=== PATIENT | female | born 1945 | race Caucasian/White ===

== ENCOUNTER → 2018-02-22 12:19 | Outpatient (CLI) | payer MEDICARE, OTHER, SELFPAY | PROVIDERS: Visit Provider Specialist | DX: M85.851 Other specified disorders of bone density and structure, right thigh (principal); E07.9 Disorder of thyroid, unspecified; Z78.0 Asymptomatic menopausal state; Z82.62 Family history of osteoporosis; Z85.43 Personal history of malignant neoplasm of ovary | CPT/HCPCS: 77080 ==

== ENCOUNTER → 2018-03-01 11:42 | Outpatient (CLI) | payer MEDICARE, OTHER, SELFPAY ==
--- NOTE | 2018-03-01 | DI.CT.S_ITS ---
PROCEDURE: CT ABDOMEN PELVIS WO/W CON INDICATIONS: 72 year-old female with diarrhea and epigastric abdominal pain. TECHNIQUE: After the administration of oral water, 5 mm thick sections acquired from the diaphragms to the iliac crests. After the administration of intravenous contrast, 3 mm thick sections acquired from the diaphragms to the symphysis. 3 mm thick coronal and sagittal reformats were acquired. For radiation dose reduction, the following was used: automated exposure control, adjustment of mA and/or kV according to patient size. COMPARISON: None. FINDINGS: Image quality: Excellent. ABDOMEN: Lung bases: Lung bases are clear. Heart size is normal. Solid organs: Liver is normal in size. 3.1 cm anterior left hepatic lobe septated cyst is incidentally noted, as well as posterior right hepatic lobe subcapsular hemangioma that measure 1.7 x 2.2 cm, demonstrating characteristic peripheral contrast puddling. Gallbladder wall thickness is normal. Biliary system is non-dilated. Pancreas enhances normally, without suspicious mass lesions. Main pancreatic duct is normal in caliber throughout, with pancreas divisum present. Spleen is normal in size and enhancement. No adrenal nodules. Both kidneys demonstrates symmetric enhancement, without hydronephrosis. No nephrolithiasis. 6.5 cm superior left renal cortical simple cyst is present. Bowel and peritoneum: Stomach, small and large bowel loops are normal in caliber and wall thickness. The appendix appears normal. There is mild sigmoid colon diverticulosis. No free fluid or air. Nodes and vessels: No retroperitoneal or mesenteric adenopathy by size criteria. Aorta and inferior vena are normal in caliber, with aortoiliac atherosclerosis. Miscellaneous: No ventral hernias. PELVIS: Genitourinary: Bladder wall thickness is normal. Uterus and ovaries are surgically absent. Miscellaneous: No inguinal hernias or adenopathy. Bones: No suspicious bony lesions. No vertebral body compression fractures. There is grade 1 L4-L5 spondylolisthesis from facet joint degeneration. IMPRESSION: 1. No acute pancreatic or biliary pathology to explain epigastric abdominal pain. Note is made of pancreas divisum, an anatomic variant. 2. Incidental 3.1 cm anterior left hepatic lobe septated cyst, as well as 1.7 x 2.2 cm posterior right hepatic lobe subcapsular hemangioma. 3. 6.5 cm superior left renal cortical exophytic simple cyst. 4. Mild sigmoid colon diverticulosis. Dictated by: Delfino Souza M.D. on 03/01/2018 at 13:59 Approved by: Delfino Souza M.D. on 03/01/2018 at 14:14
== END ==
PROVIDERS: Visit Provider Family Medicine
DX: R19.7 Diarrhea, unspecified (principal); R10.13 Epigastric pain; K76.89 Other specified diseases of liver; N28.1 Cyst of kidney, acquired
CPT/HCPCS: 74178; Q9967

== ENCOUNTER → 2018-04-16 10:19 | Outpatient (CLI) | payer MEDICARE, OTHER, SELFPAY ==
[2018-04-20 16:17] LABS: Immunoglobulin A 130 mg/dL (81-463)
== END ==
PROVIDERS: Internal Medicine Gastroenterology; PCP Family Medicine; Visit Provider Family Medicine
DX: R89.7 Abnormal histological findings in specimens from other organs, systems and tissues (principal)
CPT/HCPCS: 36415; 82784; 83516

== ENCOUNTER → 2019-08-17 13:20 | Outpatient (CLI) | payer MEDICARE, OTHER, SELFPAY ==
--- NOTE | 2019-08-17 | DI.ECHO.S_ITS ---
[facility]---------+ [facility] +---------+ : : [address] : : : : [id number] : : : : Phone: [phone]+ Echocardiogram Report + + :Name: BRANDON GARCIA Study Date: 08/17/2019 Height: 65 in : :[facility] Weight: 170 lb : : Gender: Female BSA: 1.8 m2 : :: 1945 Age: 74 yrs BP: 136/78 mmHg: :Reason For Study: Cardiomyopathy : : Performed By: [facility] Staff : :Referring: STEVAN TAYLOR D : + + Interpretation Summary The left ventricle is normal in size. Left ventricular ejection fraction is estimated to be 50 +/- 5%. Septal motion is consistent with conduction abnormality. The right ventricle is normal in size and function. There is mild to moderate mitral regurgitation. Procedure: A two-dimensional transthoracic echocardiogram with color flow and Doppler was performed. The study quality was technically adequate. There is no prior echocardiogram noted for this patient. The patient was in normal sinus rhythm during the exam. The patient had a bundle branch block rhythm during the exam. Left Ventricle: The left ventricle is normal in size. There is normal left ventricular wall thickness. There is no thrombus. Left ventricular systolic function is normal. Left ventricular ejection fraction is estimated to be 50 +/- 5%. Septal motion is consistent with conduction abnormality. Diastolic parameters suggest a relaxation abnormality of the left ventricle, consistent with probable normal filling pressures. Right Ventricle: The right ventricle is normal in size and function. Atria: The left atrial size is normal. Right atrial size is normal. The interatrial septum is intact with no evidence for an atrial septal defect. Mitral Valve: There is mild mitral annular calcification. The mitral valve leaflets are slightly calcified. There is mild to moderate mitral regurgitation. Aortic Valve: The aortic valve is trileaflet. The aortic valve opens well. There is no aortic valve stenosis. No aortic regurgitation is present. Tricuspid Valve: The tricuspid valve is normal. There is trace tricuspid regurgitation. Pulmonary artery pressures cannot be estimated because of the lack of a measurable TR jet velocity. Pulmonic Valve: The pulmonic valve is not well visualized. There is trace pulmonic regurgitation. Great Vessels: The aortic root is normal size. The dimensions of the ascending aorta are normal. The pulmonary artery is normal size. The IVC is dilated (diameter is greater than 2.1 cm) yet it collapses greater than 50% with a sniff. This suggests a right atrial pressure of 8 mm Hg. Pericardium/ Pleura There is no pericardial effusion. There is no pleural effusion. MMode/2D Measurements & Calculations LVIDd: 4.7 cm LVOT diam: 2.1 cm LVIDs: 3.3 cm Ao root diam: 3.5 cm FS: 29.0 % IVSd: 1.1 cm LVPWd: 1.1 cm LV kent. diameter/BSA (cm/m^2): 2.5 LV sys. diameter/BSA (cm/m^2): 1.8 LA A2 area: 20.6 cm2 RA long axis: 4.3 cm LA A4 area: 16.8 cm2 RA area: 13.7 cm2 LA length (vol): 5.1 cm RA vol: 37.7 ml LA vol: 58.1 ml RA : 20.4 ml/m2 LA vol index: 31.5 ml/m2 TAPSE: 2.5 cm Doppler Measurements & Calculations Ao V2 max: 115.4 cm/sec LVOT Max Eulalio: 85.3 cm/sec Ao V2 mean: 77.0 cm/sec LV V1 max P.9 mmHg Ao max P.3 mmHg LV V1 VTI: 20.7 cm Ao mean P.8 mmHg GLORIA(I,D): 2.8 cm2 Ao V2 VTI: 24.8 cm GLORIA(V,D): 2.5 cm2 sev ratio: 0.84 GLORIA indexed to BSA (cm^2/m^2): 1.5 MV E max eulalio: 67.9 cm/sec SV(LVOT): 69.2 ml MV A max eulalio: 83.7 cm/sec MV E/A: 0.81 Med Peak E' Eulalio: 6.8 cm/sec E/E' med: 10.0 Lat Peak E' Eulalio: 8.9 cm/sec E/E' lat: 7.7 E/e' average: 8.8 MV dec time: 0.15 sec Reading Physician:02:36 PM
== END ==
PROVIDERS: PCP Family Medicine; Visit Provider Family Medicine
DX: I34.0 Nonrheumatic mitral (valve) insufficiency (principal); I42.9 Cardiomyopathy, unspecified; M85.851 Other specified disorders of bone density and structure, right thigh; Z78.0 Asymptomatic menopausal state; E07.9 Disorder of thyroid, unspecified; K90.0 Celiac disease; Z90.722 Acquired absence of ovaries, bilateral; Z82.62 Family history of osteoporosis; Z85.43 Personal history of malignant neoplasm of ovary
CPT/HCPCS: 77080; 93306

== ENCOUNTER → 2019-11-17 08:44 | Outpatient (CLI) | payer MEDICARE, OTHER, SELFPAY ==
[2019-11-17 10:11] LABS: Add Manual Diff / Slide Review NO; Basophils Absolute Auto 0 /uL (0-100); Basophils Percent Auto 1.2 % (0-2); Eosinophils Absolute Auto 100 /uL (0-450); Eosinophils Percent Auto 3.5 % (2-4); Hemoglobin 13.2 g/dL (12.0-16.0); Lymphocytes Absolute Auto 700 /uL (1100-4500); Lymphocytes Percent Auto 19.6 % (25-40); Mean Corpuscular HGB Conc 33.9 % (30-36); Mean Corpuscular Hemoglobin 31.1 PG (26-34); Mean Corpuscular Volume 91.7 fL (80-100); Monocytes Absolute Auto 400 /uL (0-900); Monocytes Percent Auto 9.9 % (3-14); Neutrophils Absolute Auto 2500 /uL (1500-7000); Neutrophils Percent Auto 65.8 % (50-75); Platelet Count 256 X10^3/uL (150-400); Red Blood Cell Count 4.25 X10^6/uL (4.0-5.2); Red Cell Distribution Width 14.1 % (11.6-14.8); White Blood Cell Count 3.7 X10^3/uL (4.5-11.0)
[2019-11-17 10:31] LABS: Erythrocyte Sedimentation Rate 5 MM/HR (0-20)
[2019-11-17 10:39] LABS: Alanine Aminotransferase 20 IU/L (<35); Albumin 4.4 g/dL (3.5-5.0); Albumin Globulin Ratio 1.4 (1.0-2.8); Alkaline Phosphatase 63 U/L (38-126); Aspartate Aminotransferase 30 IU/L (14-36); BUN Creatinine Ratio 22.9 (6-22); Bilirubin Total 0.6 mg/dL (0.2-1.3); Blood Urea Nitrogen 19 mg/dL (7-17); Calcium 9.4 mg/dL (8.4-10.2); Carbon Dioxide 29 mmol/L (22-32); Chloride 103 mmol/L (98-107); Cholesterol 212 mg/dL (140-199); Estimated Glomerular Filt Rate > 60.0 mL/min (>60); Globulin 3.2 g/dL (1.7-4.1); Glucose 96 mg/dL (80-110); HDL Cholesterol 52 mg/dL (40-60); HEMOLYSIS < 15 (0-50); LDL Cholesterol Calculated 149 mg/dL (<100); Sodium 140 mmol/L (137-145); Total Protein 7.6 g/dL (6.3-8.2); Triglycerides 54 mg/dL (35-150)
[2019-11-17 10:43] LABS: C-Reactive Protein Quant < 0.5 mg/dL (<1.0)
[2019-11-17 11:05] LABS: Thyroid Stimulating Hormone 4.88 uIU/mL (0.47-4.68)
[2019-11-17 11:34] LABS: Hep C Virus Ab w/Reflex Quant NEGATIVE s/c (NEGATIVE)
[2019-11-17 11:38] LABS: Folate 16.3 ng/mL (2.76-20.0); Vitamin B12 816 pg/mL (239-931)
[2019-11-19 00:44] LABS: Methylmalonic Acid,Serum 110 nmol/L (0-378)
== END ==
PROVIDERS: PCP Family Medicine; Referring Provider Family Medicine; Visit Provider Family Medicine
DX: E03.9 Hypothyroidism, unspecified (principal); D72.819 Decreased white blood cell count, unspecified; E78.2 Mixed hyperlipidemia
CPT/HCPCS: 36415; 80053; 80061; 82607; 82746; 83090; 83921; 84443; 85025; 85651; 86140; 86803

== ENCOUNTER → 2021-04-02 10:05 | Outpatient (CLI) | payer MEDICARE, OTHER, SELFPAY ==
[2021-04-02 18:48] LABS: Add Manual Diff / Slide Review NO; Basophils Absolute Auto 0 /uL (0-100); Basophils Percent Auto 0.7 % (0-2); Eosinophils Absolute Auto 200 /uL (0-450); Hemoglobin 12.6 g/dL (12.0-16.0); Lymphocytes Absolute Auto 400 /uL (1100-4500); Lymphocytes Percent Auto 12.2 % (25-40); Mean Corpuscular Hemoglobin 30.6 PG (26-34); Mean Corpuscular Volume 90.1 fL (80-100); Monocytes Absolute Auto 400 /uL (0-900); Monocytes Percent Auto 13.6 % (3-14); Neutrophils Absolute Auto 2100 /uL (1500-7000); Neutrophils Percent Auto 68.5 % (50-75); Platelet Count 248 X10^3/uL (150-400); Red Blood Cell Count 4.11 X10^6/uL (4.0-5.2); Red Cell Distribution Width 14.7 % (11.6-14.8); White Blood Cell Count 3.1 X10^3/uL (4.5-11.0)
[2021-04-02 18:59] LABS: Alanine Aminotransferase 19 IU/L (<35); Albumin 3.9 g/dL (3.5-5.0); Albumin Globulin Ratio 1.5 (1.0-2.8); Alkaline Phosphatase 69 U/L (38-126); Aspartate Aminotransferase 31 IU/L (14-36); BUN Creatinine Ratio 20.3 (6-22); Bilirubin Total 0.7 mg/dL (0.2-1.3); Blood Urea Nitrogen 15 mg/dL (7-17); Calcium 9.4 mg/dL (8.4-10.2); Carbon Dioxide 28 mmol/L (22-32); Chloride 105 mmol/L (98-107); Cholesterol 208 mg/dL (140-199); Estimated Glomerular Filt Rate > 60.0 mL/min (>60); Globulin 2.6 g/dL (1.7-4.1); Glucose 91 mg/dL (80-110); HDL Cholesterol 66 mg/dL (40-60); HEMOLYSIS < 15 (0-50); LDL Cholesterol Calculated 129 mg/dL (<100); Potassium 4.6 mmol/L (3.4-5.1); Sodium 139 mmol/L (137-145); Total Protein 6.5 g/dL (6.3-8.2); Triglycerides 67 mg/dL (35-150)
[2021-04-02 19:22] LABS: Vitamin D 25 Hydroxy (D3) 57.9 ng/mL (30.0-100.0)
[2021-04-02 19:32] LABS: TSH w/ Reflex to FT4 0.75 uIU/mL (0.47-4.68)
== END ==
PROVIDERS: PCP Family Medicine; Visit Provider Family Medicine
DX: E03.9 Hypothyroidism, unspecified (principal); M85.80 Other specified disorders of bone density and structure, unspecified site; Z13.220 Encounter for screening for lipoid disorders; Z78.0 Asymptomatic menopausal state
CPT/HCPCS: 80053; 80061; 82306; 84443; 85025

== ENCOUNTER → 2021-04-23 11:19 | Outpatient (CLI) | payer MEDICARE, OTHER, SELFPAY ==
[2021-04-23 18:53] LABS: Add Manual Diff / Slide Review NO; Basophils Absolute Auto 0 /uL (0-100); Basophils Percent Auto 0.3 % (0-2); Eosinophils Absolute Auto 100 /uL (0-450); Eosinophils Percent Auto 3.9 % (2-4); Hematocrit 39.6 % (36-46); Hemoglobin 13.1 g/dL (12.0-16.0); Lymphocytes Absolute Auto 500 /uL (1100-4500); Lymphocytes Percent Auto 12.1 % (25-40); Mean Corpuscular Hemoglobin 30.1 PG (26-34); Mean Corpuscular Volume 91.1 fL (80-100); Monocytes Absolute Auto 400 /uL (0-900); Monocytes Percent Auto 11.3 % (3-14); Neutrophils Absolute Auto 2800 /uL (1500-7000); Neutrophils Percent Auto 72.4 % (50-75); Platelet Count 248 X10^3/uL (150-400); Red Blood Cell Count 4.35 X10^6/uL (4.0-5.2); Red Cell Distribution Width 14.9 % (11.6-14.8); White Blood Cell Count 3.8 X10^3/uL (4.5-11.0)
[2021-04-23 19:09] LABS: Alanine Aminotransferase 23 IU/L (<35); Albumin 4.2 g/dL (3.5-5.0); Albumin Globulin Ratio 1.5 (1.0-2.8); Alkaline Phosphatase 62 U/L (38-126); Amylase 63 U/L (30-110); Aspartate Aminotransferase 32 IU/L (14-36); BUN Creatinine Ratio 19.8 (6-22); Bilirubin Total 0.6 mg/dL (0.2-1.3); Blood Urea Nitrogen 17 mg/dL (7-17); Calcium 9.5 mg/dL (8.4-10.2); Carbon Dioxide 30 mmol/L (22-32); Chloride 102 mmol/L (98-107); Estimated Glomerular Filt Rate > 60.0 mL/min (>60); Globulin 2.8 g/dL (1.7-4.1); Glucose 91 mg/dL (80-110); HEMOLYSIS < 15 (0-50); Lipase 83 U/L (23-300); Potassium 4.5 mmol/L (3.4-5.1); Sodium 138 mmol/L (137-145)
[2021-04-26 14:01] LABS: Fecal Immunochemical Test Negative (Negative)
== END ==
PROVIDERS: PCP Physician Assistant; Visit Provider Physician Assistant
DX: I44.7 Left bundle-branch block, unspecified (principal); Q45.3 Other congenital malformations of pancreas and pancreatic duct; R10.12 Left upper quadrant pain; R10.32 Left lower quadrant pain
CPT/HCPCS: 80053; 82150; 82274; 83690; 85025

== ENCOUNTER → 2021-06-11 10:47 | Outpatient (CLI) | payer MEDICARE, OTHER, SELFPAY ==
--- NOTE | 2021-06-11 10:48 | DI.MRI.S_ITS ---
PROCEDURE: MR LUMBAR SPINE WO CON INDICATIONS: pain in both lower legs TECHNIQUE: Noncontrast sagittal T1 spin echo and T2 fast echo, sagittal STIR, axial T1 and T2 fast spin echo through the lumbar spine. In cases with scoliosis, additional coronal T2 fast spin echo may be performed. COMPARISON: [facility], CT, CT ABDOMEN PELVIS WO/W CON, 03/01/2018, 12:44. FINDINGS: Image quality: This examination is limited by involuntary motion artifact. Alignment and Curvature: There is mild grade 1 anterolisthesis at the L4-L5 level. There is minimal dextroconvex scoliotic curvature. Bone Marrow: Marrow is of normal overall signal. No acute vertebral body compression fractures. Spinal Cord: Conus medullaris terminates at the L1 level. Visualized cord demonstrates normal signal and size. Paraspinous Soft Tissues: No paravertebral masses. A 5.5 cm simple cyst is seen along the medial aspect of the left kidney. T11-T12: Moderate loss of disc height and disc signal can be seen. Reactive marrow endplate changes are seen, which are hyperintense on T1-weighted and T2-weighted imaging and most consistent with fatty metaplasia (Modic type II changes). Mild generalized disc bulge is seen. No significant neural foraminal or central canal narrowing can be seen. T12-L1: Mild loss of disc height is seen. Loss of disc signal is seen. No significant neural foraminal or central canal narrowing can be seen. L1-L2: The disc height is well-preserved. Loss of disc signal is seen at this level. No significant neural foraminal or central canal narrowing can be seen. L2-L3: The disc height is well-preserved. Loss of disc signal is seen at this level. Minimal to mild disc bulge is seen. There is mild left-sided and no right-sided neural foraminal narrowing seen. No significant central canal narrowing is seen. L3-L4: The disc height is well-preserved. Loss of disc signal is seen at this level. Moderate generalized disc bulge is seen. There is a mild central disc extrusion, with slight inferior migration of the disc material, as on series 2, image 5. At least moderate facet hypertrophy is seen. Associated hypertrophy of the ligamentum flavum can be seen. Moderate bilateral neural foraminal narrowing can be seen, left worse than right. Moderate central canal narrowing is seen. L4-L5: At least moderate loss of disc height and disc signal can be seen. Reactive marrow endplate changes are seen, which are hyperintense on T1-weighted and T2-weighted imaging and most consistent with fatty metaplasia (Modic type II changes). Moderate disc bulge is seen, with central disc uncovering. Prominent facet hypertrophy is seen at this level. At least moderate bilateral neural foraminal narrowing can be seen, right worse than left. Moderate central canal narrowing is seen. L5-S1: The disc height is well-preserved. Loss of disc signal is seen at this level. Mild generalized disc bulge is seen. Prominent facet hypertrophy is seen. Fluid is seen within the facet joints themselves. No significant neural foraminal narrowing can be seen. Macroadenoma center IMPRESSION: Multiple levels of lumbar spine degenerative change are seen, which are overall worst the L4-L5 level. Mild central disc extrusion seen at L3-L4. Minimal dextroconvex thoracolumbar scoliotic curvature can be seen. Incidental note is made of: 5.5 cm simple appearing left renal cyst Dictated by: Jorge Tinsley M.D. on 06/11/2021 at 12:03 Approved by: Jorge Tinsley M.D. on 06/11/2021 at 12:09
== END ==
PROVIDERS: PCP Physician Assistant; Referring Provider Physician Assistant; Visit Provider Physician Assistant
DX: M47.26 Other spondylosis with radiculopathy, lumbar region (principal); M47.27 Other spondylosis with radiculopathy, lumbosacral region; M51.16 Intervertebral disc disorders with radiculopathy, lumbar region; M41.85 Other forms of scoliosis, thoracolumbar region; N28.1 Cyst of kidney, acquired
CPT/HCPCS: 72148

== ENCOUNTER → 2021-10-28 14:35 | Outpatient (CLI) | payer MEDICARE, OTHER, SELFPAY ==
--- NOTE | 2021-10-28 | DI.RAD.S_ITS ---
PROCEDURE: XR DEXA AXIAL SKELETON INDICATIONS: ROUTINE SCREENING COMPARISON: None. FINDINGS: This blank DEXA report has been sent in error by the PACS system. The correct and complete report will be forthcoming in 1-2 days. Thank you for your patience and understanding. Dictated by: Chen Angeles MD, PhD on 10/28/2021 at 15:45 Approved by: Chen Angeles MD, PhD on 10/28/2021 at 15:45
== END ==
PROVIDERS: PCP Family Medicine; Referring Provider Internal Medicine Hematology & Oncology; Visit Provider Internal Medicine Hematology & Oncology
DX: M85.851 Other specified disorders of bone density and structure, right thigh (principal); Z78.0 Asymptomatic menopausal state; K90.0 Celiac disease; E07.9 Disorder of thyroid, unspecified; Z90.722 Acquired absence of ovaries, bilateral; Z85.3 Personal history of malignant neoplasm of breast; Z82.62 Family history of osteoporosis; Z85.43 Personal history of malignant neoplasm of ovary
CPT/HCPCS: 77080

== ENCOUNTER → 2022-09-18 11:55 | Outpatient (CLI) | payer MEDICARE, OTHER, SELFPAY ==
--- NOTE | 2022-09-18 11:57 | DI.ECHO.S_ITS ---
[facility]---------+ [facility] +---------+ : : [address] : : : : [id number] : : : : Phone: [phone]+ Echocardiogram Report + + :Name: BRANDON GARCIA Study Date: 09/18/2022 Height: 63 in : :[facility] ReadingLocation: Weight: 178 lb : : Gender: Female BSA: 1.8 m2 : :: 1945 Age: 77 yrs BP: 128/87 mmHg: :Reason For Study: HISTORY OF CARDIOMYOPATHY : :Ordering Physician: UTE, : :DOMINGA William Performed By: Hyun Duran : :Referring: LILLY MORALEZ MD : + + Interpretation Summary The ejection fraction is estimated to be 40-45%. Great I diastolic dysfunction. The right ventricle is normal in size and function. There is mild mitral regurgitation. Pulmonary artery pressures cannot be estimated because of the lack of a measurable TR jet velocity. Procedure: A two-dimensional transthoracic echocardiogram with color flow and Doppler was performed. The study quality was technically adequate. There is no prior echocardiogram noted for this patient. The patient was in sinus rhythm with heart rates between 65-78 bpm during the exam. Left Ventricle: The left ventricle is normal in size and wall thickness. The ejection fraction is estimated to be 40-45%. There is a mild dyssynchronous contraction pattern, consistent with a conduction abnormality. Diastolic parameters suggest a relaxation abnormality of the left ventricle, consistent with probable normal filling pressures. Right Ventricle: The right ventricle is normal in size and function. Atria: The left atrium is borderline dilated. The right atrium is normal in size. There is no Doppler evidence for an interatrial shunt. Mitral Valve: The mitral valve is normal. There is mild mitral regurgitation. Aortic Valve: The aortic valve opens well. There is no aortic valve stenosis. No aortic regurgitation is present. Tricuspid Valve: The tricuspid valve is normal in structure and function. There is trace tricuspid regurgitation. Pulmonary artery pressures cannot be estimated because of the lack of a measurable TR jet velocity. Pulmonic Valve: The pulmonic valve is not well seen, but is grossly normal. There is mild pulmonic regurgitation. Great Vessels: The aortic root is normal size. The dimensions of the ascending aorta are normal. The IVC is of normal diameter and collapses greater than 50% with a sniff. This suggests a low right atrial pressure of 3 mm Hg. Pericardium/ Pleura There is no pericardial effusion. There is no pleural effusion. MMode/2D Measurements & Calculations LVIDd: 4.7 cm LVOT diam: 2.1 cm LVIDs: 3.6 cm Ao root diam: 3.5 cm FS: 25.1 % asc Aorta Diam: 3.5 cm IVSd: 0.83 cm Ao Arch Diam (Prox Trans): 2.7 cm LVPWd: 1.0 cm LV kent. diameter/BSA (cm/m^2): 2.6 LV sys. diameter/BSA (cm/m^2): 1.9 LA A2 area: 21.5 cm2 RA long axis: 5.4 cm LA A4 area: 17.5 cm2 RA area: 16.1 cm2 LA length (vol): 5.2 cm RA vol: 40.6 ml LA vol: 61.6 ml RA : 22.1 ml/m2 LA vol index: 33.5 ml/m2 IVC diam: 1.3 cm RVD1 (basal): 3.1 cm RVD2 (mid): 2.8 cm TAPSE: 1.9 cm Doppler Measurements & Calculations Ao V2 max: 132.1 cm/sec LVOT Max Eulalio: 83.7 cm/sec Ao V2 mean: 95.6 cm/sec LV V1 max P.8 mmHg Ao max P.0 mmHg LV V1 VTI: 16.8 cm Ao mean P.0 mmHg GLORIA(I,D): 2.3 cm2 Ao V2 VTI: 26.6 cm GLORIA(V,D): 2.3 cm2 sev ratio: 0.63 GLORIA indexed to BSA (cm^2/m^2): 1.2 MV E max eulalio: 64.7 cm/sec PA V2 max: 80.4 cm/sec MV A max eulalio: 102.8 cm/sec PA V2 mean: 55.6 cm/sec MV E/A: 0.63 PA mean P.4 mmHg Med Peak E' Eulalio: 6.5 cm/sec PA pr(Accel): 49.9 mmHg E/E' med: 10.0 Lat Peak E' Eulalio: 6.5 cm/sec E/E' lat: 9.9 E/e' average: 10.0 MV dec time: 0.20 sec SVLVOT): 60.6 ml Reading Physician:03:58 PM
== END ==
PROVIDERS: PCP Family Medicine; Referring Provider Internal Medicine Cardiovascular Disease; Visit Provider Internal Medicine Cardiovascular Disease
DX: I34.0 Nonrheumatic mitral (valve) insufficiency (principal); I37.1 Nonrheumatic pulmonary valve insufficiency; Z86.79 Personal history of other diseases of the circulatory system
CPT/HCPCS: 93306

== ENCOUNTER → 2023-06-10 12:20 | Outpatient (CLI) | payer MEDICARE, OTHER, SELFPAY ==
--- NOTE | 2023-06-10 | DI.MRI.S_ITS ---
PROCEDURE: MR LUMBAR SPINE WO CON INDICATIONS: Radiculopathy, lumbar region TECHNIQUE: Noncontrast sagittal T1 spin echo and T2 fast echo, coronal T2, sagittal STIR, and T2 fast spin echo through the lumbar spine. COMPARISON: [facility] [place], CR, XR LUMBAR SPINE WITH OBLIQUES PLUS FLEXION EXTENSION, 05/27/2023, 10:59. [facility], , MR LUMBAR SPINE WO CON, 06/11/2021, 10:57. FINDINGS: Image quality: Excellent. Alignment and Curvature: 5 lumbar type vertebral bodies are present by plain film. 6 mm of anterolisthesis of L4 on L5. 3 mm of retrolisthesis of T12 on L1. Bone Marrow: Marrow is of normal overall signal. No acute vertebral body compression fractures. Moderate reactive signal within the endplates adjacent to the L4-L5 intervertebral disc. Mild reactive signal within the remaining lumbar and lower thoracic endplates. Spinal Cord: Conus medullaris terminates at the lower L2 level. Visualized cord demonstrates normal signal and size. Paraspinous Soft Tissues: No paravertebral masses. Large left renal cyst is present, as before. T12-L1: Moderate disc height loss and desiccation. Mild diffuse disc bulge. Mild facet and ligamentum flavum hypertrophy. Mild epidural lipomatosis. Mild canal stenosis. Mild bilateral foraminal stenosis. No significant change. L1-L2: Mild disc desiccation and diffuse disc bulge. Mild facet and ligamentum flavum hypertrophy. Mild epidural lipomatosis. Mild canal stenosis. Mild bilateral foraminal stenosis. No significant change. L2-L3: Mild disc desiccation and diffuse disc bulge. Mild facet and ligamentum flavum hypertrophy. Mild canal stenosis. Mild bilateral foraminal stenosis. No significant change. L3-L4: Moderate disc desiccation. Mild disc height loss and diffuse disc bulge. Mild facet and ligamentum flavum hypertrophy. Mild epidural lipomatosis. Mild canal stenosis. Moderate bilateral foraminal stenosis. L4-L5: Severe disc height loss and desiccation. Moderate facet and ligamentum flavum hypertrophy. Mild canal stenosis. Mild right foraminal stenosis. No left foraminal stenosis. No significant change. L5-S1: Mild disc desiccation and diffuse disc bulge. Moderate bilateral facet hypertrophy. No canal stenosis. Mild bilateral foraminal stenosis. No significant change. IMPRESSION: 1. Multilevel degenerative disc and facet disease, as well as ligamentum flavum hypertrophy and epidural lipomatosis. 2. Mild multilevel canal stenoses. 3. Multilevel foraminal stenoses, worst at L3-L4 where there are moderate foraminal stenoses. Dictated by: Brielle Aviles M.D. on 06/10/2023 at 16:34 Approved by: Brielle Aviles M.D. on 06/10/2023 at 16:39
== END ==
PROVIDERS: PCP Family Medicine; Referring Provider Physical Medicine & Rehabilitation Pain Medicine; Visit Provider Physical Medicine & Rehabilitation Pain Medicine
DX: M54.16 Radiculopathy, lumbar region (principal); M51.36 Other intervertebral disc degeneration, lumbar region; M48.061 Spinal stenosis, lumbar region without neurogenic claudication; M47.816 Spondylosis without myelopathy or radiculopathy, lumbar region
CPT/HCPCS: 72148

== ENCOUNTER → 2023-09-14 11:59 | Outpatient (CLI) | payer MEDICARE, OTHER, SELFPAY ==
--- NOTE | 2023-09-14 12:51 | DI.MRI.S_ITS ---
PROCEDURE: MR HIP LT WO CON INDICATIONS: left hip pain TECHNIQUE: Noncontrast coronal T1 spin echo and STIR through the bony pelvis. Coronal and axial T2 fast spin echo with fat saturation, sagittal T1 spin echo, and oblique axial T2 fast spin echo with fat saturation through the hip. COMPARISON: None. FINDINGS: Image quality: Excellent. Bones and joints: Asymmetric severe left hip joint osteoarthritic changes are seen with complete loss of joint space, extensive remodeling, subcortical cystic changes and marrow edema in left acetabulum and left femoral head and neck. No discrete fracture line. No avascular necrosis of the femoral heads. Degenerative disc disease in visualized lower lumbar spine is seen. Tendons and ligaments: Distal left gluteus medius and minimus tendinosis is seen, without associated muscle atrophy. The nearby proximal iliotibial band also appears intact. The iliopsoas tendon appears intact, without adjacent bursal fluid collections or evidence for impingement syndrome. Tendinosis involving origins of hamstring tendons at left ischial tuberosity is seen. Labrum and cartilage: Global signal abnormality throughout left hip labrum is seen suggestive of extensive labral tear. Soft tissues: There is edema within medial portion of left adductor rafat and obturator externus muscles. Quadratus femoris muscle demonstrates no internal edema to suggest ischiofemoral impingement. The proximal sciatic neurovascular bundle appears normal adjacent to the hamstring tendons. No free pelvic fluid. Bladder wall thickness is normal. Genitourinary structures and bowel loops appear normal where visualized. IMPRESSION: 1. Asymmetric severe left hip joint osteoarthritis. No fracture or dislocation. No evidence of avascular necrosis. 2. Distal left gluteus medius and minimus tendinosis. Tendinosis involving left hamstring tendon origins at ischial tuberosity. Low-grade intrasubstance partial-thickness tear involving medial portion of left obturator externus muscle and left adductor rafat muscle. 3. Suggestion of extensive left hip labral tear . Dictated by: Stephen Mccormick M.D. on 09/14/2023 at 16:47 Approved by: Stephen Mccormick M.D. on 09/14/2023 at 16:53
== END ==
LOC: MRI 12:00
PROVIDERS: PCP Family Medicine; Referring Provider Family Medicine; Visit Provider Family Medicine
DX: M16.12 Unilateral primary osteoarthritis, left hip (principal); S76.012A Strain of muscle, fascia and tendon of left hip, initial encounter; M25.552 Pain in left hip
CPT/HCPCS: 73721

== ENCOUNTER → 2023-10-01 08:56 | Outpatient (CLI) | payer MEDICARE, OTHER, SELFPAY ==
--- NOTE | 2023-10-01 08:58 | DI.NM.S_ITS ---
PROCEDURE: KS STU PERF SPECT R&S PHARM Rest and pharmacological stress myocardial perfusion SPECT with gated imaging and ejection fraction RADIOPHARMACEUTICAL: 11.9 mCi Tc-99m tetrafosmin IV at rest and 27.5 mCi Tc-99m tetrafosmin IV at peak effect of pharmacological stress. A [id number] was performed. INDICATIONS: Cardiomyopathy, unspecified TECHNIQUE: Radiopharmaceutical was injected at peak stress test, and also at rest. SPECT images were obtained. SPECT myocardial perfusion images were displayed in short axis, horizontal long axis, and vertical long axis views. Gated images were reviewed using Digital [employer] software. COMPARISON: None. CARDIAC STRESS: A pharmacologic stress test was performed under the supervision of an attending staff, using an infusion of regadenoson 0.4 mg IV. Hemodynamic data: There is normal blood pressure and heart rate response to pharmacologic stress. Symptoms: The patient denied anginal chest pain. EKG: Sinus rhythm, LBBB; no ectopy. FINDINGS: Raw data: There is good myocardial uptake of radiotracer. No significant motion artifacts. [id number]-[id number] ratio is 0.35 (normal is less than 0.38 for tetrafosmin tracer). Left ventricle function: Gated images demonstrate normal left ventricular wall thickening. No segmental wall motion abnormalities. Left ventricle resting end diastolic volume is 115 mL. Left ventricle stress ejection fraction is 82%; normal range is above 45%. Myocardial perfusion: There is a medium size, mild to moderate intensity fixed distal anterior, distal septal and apical wall defect. No reversible perfusion defects. IMPRESSION: Low risk study. No evidence of pharmacologic induced ischemia. The fixed anterior and septal wall defect occurs in an area of normal wall motion and is most consistent with artifact from the LBBB. Normal LV size with normal calculated EF. Dictated by: Dominga Zambrano D.O. on 10/01/2023 at 16:11 Approved by: Dominga Zambrano D.O. on 10/01/2023 at 16:15
--- NOTE | 2023-10-01 08:58 | DI.ECHO.S_ITS ---
[facility] +---------+ : : [address] : : : : [id number] : : : : Phone: [phone]---------+ Echocardiogram Report + + :Name: BRANDON GARCIA Study Date: 10/01/2023 Height: 64 in : :[facility] ReadingLocation: Weight: 180 lb : : Gender: Female BSA: 1.9 m2 : :: 1945 Age: 78 yrs BP: 133/91 mmHg: :Reason For Study: CARDIOMYOPATHY : :Ordering Physician: UTE, : :DOMINGA William Performed By: Hyun Duran : :Referring: DOMINGA ZAMBRANO : + + Interpretation Summary The ejection fraction is estimated to be 45-50%. Diastolic function could not be accurately assessed due to contradictory data. The left atrium is mildly dilated. The right ventricle is normal in size and function. There is trace aortic regurgitation. Pulmonary artery pressures cannot be estimated because of the lack of a measurable TR jet velocity but the IVC suggests a CVP of around 3 mmHg. Compared to the prior study dated 09/18/2022, no significant change. Procedure: A two-dimensional transthoracic echocardiogram with color flow and Doppler was performed. The study quality was technically adequate. Comparison is made with the echocardiogram of 09/18/2022. The patient was in sinus rhythm with heart rates between 69-79 bpm during the exam. Left Ventricle: The left ventricle is normal in size and wall thickness. The ejection fraction is estimated to be 45-50%. Septal motion is consistent with conduction abnormality. Diastolic function could not be accurately assessed due to contradictory data. Right Ventricle: The right ventricle is normal in size and function. Atria: The left atrium is mildly dilated. Right atrial size is normal. There is no Doppler evidence for an interatrial shunt. Mitral Valve: The mitral valve is normal in structure and function. There is trace mitral regurgitation. Aortic Valve: The aortic valve is grossly normal. The aortic valve opens well. There is no aortic valve stenosis. There is trace aortic regurgitation. Tricuspid Valve: The tricuspid valve is normal in structure and function. No tricuspid regurgitation. Pulmonary artery pressures cannot be estimated because of the lack of a measurable TR jet velocity but the IVC suggests a CVP of around 3 mmHg. Pulmonic Valve: The pulmonic valve is not well visualized. There is no pulmonic valvular regurgitation. Great Vessels: The aortic root is normal size. The ascending aorta is normal in size. The IVC is of normal diameter and collapses greater than 50% with a sniff. This suggests a low right atrial pressure of 3 mm Hg. Pericardium/ Pleura There is no pericardial effusion. There is no pleural effusion. MMode/2D Measurements & Calculations LVIDd: 4.7 cm LVOT diam: 2.2 cm LVIDs: 3.7 cm Ao root diam: 3.5 cm FS: 21.6 % asc Aorta Diam: 3.6 cm EPSS: 1.3 cm Ao Arch Diam (Prox Trans): 2.6 cm IVSd: 0.89 cm LVPWd: 0.76 cm LV kent. diameter/BSA (cm/m^2): 2.5 LV sys. diameter/BSA (cm/m^2): 2.0 LA A2 area: 24.7 cm2 RA long axis: 5.1 cm LA A4 area: 18.1 cm2 RA area: 15.2 cm2 LA length (vol): 5.2 cm RA vol: 38.3 ml LA vol: 73.1 ml RA : 20.5 ml/m2 LA vol index: 39.1 ml/m2 IVC diam: 1.8 cm RVD1 (basal): 3.5 cm RVD2 (mid): 3.5 cm TAPSE: 2.2 cm Doppler Measurements & Calculations Ao V2 max: 121.8 cm/sec LVOT Max Eulalio: 96.3 cm/sec Ao V2 mean: 81.7 cm/sec LV V1 max P.7 mmHg Ao max P.9 mmHg LV V1 VTI: 20.5 cm Ao mean P.0 mmHg GLORIA(I,D): 3.4 cm2 Ao V2 VTI: 23.4 cm GLORIA(V,D): 3.0 cm2 sev ratio: 0.87 GLORIA indexed to BSA (cm^2/m^2): 1.8 MV E max eulalio: 62.1 cm/sec PA V2 max: 80.8 cm/sec MV A max eulalio: 73.2 cm/sec PA V2 mean: 57.5 cm/sec MV E/A: 0.85 PA mean P.7 mmHg Med Peak E' Eulalio: 6.5 cm/sec PA pr(Accel): 63.6 mmHg E/E' med: 9.5 Lat Peak E' Eulalio: 7.1 cm/sec E/E' lat: 8.7 E/e' average: 9.1 MV dec time: 0.22 sec SV(LVOT): 78.6 ml Reading Physician:06:01 PM
== END ==
LOC: NUCM 08:56
PROVIDERS: PCP Family Medicine; Referring Provider Internal Medicine Cardiovascular Disease; Visit Provider Internal Medicine Cardiovascular Disease
DX: I42.9 Cardiomyopathy, unspecified (principal); I44.7 Left bundle-branch block, unspecified
CPT/HCPCS: 78452; 93017; 93306; A9502; J2785

== ENCOUNTER 2023-10-21 14:33 | Emergency (ER) | payer MEDICARE, OTHER, SELFPAY ==
[2023-10-21 14:40] VITALS: BP 171/74; PULSE 77; RESP 16; TEMP 36.4; O2SAT 100; BMI 31.8
--- NOTE | 2023-10-21 15:06 | DI.US.S_ITS ---
PROCEDURE: US PERIPH VENOUS LOW EXTREM LT INDICATIONS: r/o DVT TECHNIQUE: Real-time imaging, as well as color and pulse Doppler interrogation, were performed of the lower extremity deep veins from the inguinal ligament to the popliteal fossa, with documentation of the visualized calf veins. COMPARISON: None. FINDINGS: The common femoral, femoral, popliteal, and the visualized calf veins are normally compressible, and free of intraluminal thrombus. Color and pulse Doppler demonstrate normal phasic intraluminal flow. There is normal augmentation response to distal compression maneuver. IMPRESSION: No findings of lower extremity deep venous thrombosis. Dictated by: Akanksha Mitchell M.D. on 10/21/2023 at 15:59 Approved by: Akanksha Mitchell M.D. on 10/21/2023 at 16:00
--- NOTE | 2023-10-21 15:53 | ED_ITS ---
HPI - Extremity Problem <Vanessa Olsen PA-C - Last Filed: 10/22/23 19:39> General Chief complaint: Extremity Problem,Nontraumatic Stated complaint: sent by pcp for ultrasound Time Seen by Provider: 10/21/23 15:06 Source: patient Mode of arrival: Family Vehicle History of Present Illness HPI Narrative: This is a 78-year-old female with history of chronic left hip pain and lumbar radiculopathy left leg pain who presents sent by her primary care provider on [facility] for concern for possible DVT in the setting of left lower leg swelling since yesterday. Patient denies pain but notes a ?discomfort? sensa tion and as if her calf feels a bit swollen. She denies new or worsening numbness tingling denies any weakness of this leg any heat or any redness of the skin. She does state that she has been sleeping for the last week or 2 with her left leg draped off the side of the sectional sofa that she sleeps on because it helps to relieve her back pain. She is unable to lay flat due to her lumbar pain and left hip pain that have been chronic for some time. She does ambulate about the house but is not very active otherwise stating that her pain gets pretty uncomfortable even just walking out to check the mail. She is planning to see Orthopedics for evaluation regarding her hip and already has a scheduled with her PCP. She denies any other complaints or concerns including chest pain, shortness of breath or other. Related Data Home Medications Medication Instructions Recorded Confirmed clobetasol 0.05 % topical ointment 1 applictn topical BID 01/29/18 05/24/21 loratadine 10 mg capsule 10 mg PO DAILY PRN 01/22/21 05/24/21 denosumab 60 mg/mL subcutaneous 60 mg SUBCUT [id number] 02/25/21 05/24/21 syringe (Prolia) desonide 0.05 % lotion 1 applic topical QD-BID PRN 02/25/21 05/24/21 letrozole 2.5 mg tablet 2.5 mg PO DAILY 02/25/21 05/24/21 pimecrolimus 1 % topical cream 1 applic topical BID 02/25/21 05/24/21 (Elidel) levothyroxine 88 mcg tablet 88 mcg PO DAILY 04/17/21 05/24/21 Allergies Allergy/AdvReac Type Severity Reaction Status Date / Time hydrocodone [From VICODIN] Allergy Mild itchy Unverified 02/25/21 11:22 plum Allergy Unknown ITCHING Unverified 04/17/21 08:42 ALMONDS Allergy Mild SKIN: Uncoded 04/17/21 08:42 ITCHING STRAWBERRY EXTRACT Allergy Mild SKIN:ITCHIN Uncoded 04/17/21 08:43 G ascorbate Allergy Unknown SKIN: Uncoded 04/17/21 08:41 ITCHING EXERCISE AdvReac Mild INDUCED Uncoded 02/25/21 11:22 URTICARIA Review of Systems <Vanessa Olsen PA-C - Last Filed: 10/22/23 19:39> Review of Systems Narrative: See HPI Patient History <Vanessa Olsen PA-C - Last Filed: 10/22/23 19:39> Medical History Borderline serous cystadenoma of left ovary History of cardiomyopathy GERD (gastroesophageal reflux disease) Cancer Menopause Surgical History S/P lumpectomy of breast (~10/2019) H/O hysterectomy with oophorectomy Social History Smoking Status: Never smoker Smoking Status: Never smoker Exam <Vanessa Olsen PA-C - Last Filed: 10/22/23 19:39> Narrative Exam Narrative: GENERAL: [78] year old patient appears stated age. Well-developed patient, in mild distress. HEAD: Atraumatic. Normocephalic. EYES: Pupils equal round and reactive. Extraocular motions intact. No scleral icterus. No injection or drainage. ENT: Nose without bleeding, purulent drainage. Airway patent. NECK: Trachea midline. CARDIOVASCULAR: Regular rate and rhythm without murmurs, gallops, or rubs. RESPIRATORY: Clear to auscultation. Breath sounds equal bilaterally. No wheezes, rales, or rhonchi. GASTROINTESTINAL: Abdomen soft, non-tender, nondistended. EXTREMITIES: There is mild swelling without erythema heat or tenderness about the left ankle it is nonpitting edema. No edema or joint tenderness. NEURO: AOx3. SKIN: No rash or erythema of visible areas Initial Vital Signs Initial Vital Signs: Vital Signs Temperature 97.5 F L 10/21/23 14:40 Pulse Rate 77 10/21/23 14:40 Respiratory Rate 16 10/21/23 14:40 Blood Pressure 171/74 H 10/21/23 14:40 Pulse Oximetry 100 10/21/23 14:40 Oxygen Delivery Method Room Air 10/21/23 14:40 <Alison Fung DO - Last Filed: 10/24/23 07:50> Initial Vital Signs Initial Vital Signs: Vital Signs Temperature 97.5 F L 10/21/23 14:40 Pulse Rate 77 10/21/23 14:40 Respiratory Rate 16 10/21/23 14:40 Blood Pressure 171/74 H 10/21/23 14:40 Pulse Oximetry 100 10/21/23 14:40 Oxygen Delivery Method Room Air 10/21/23 14:40 Course <Vanessa Olsen PA-C - Last Filed: 10/22/23 19:39> Orders Ordered: ED Orders 10/21/23 15:06 US periph venous low extrem lt Stat Vital Signs Vital signs: Vital Signs - 8 hr 10/21/23 14:40 10/21/23 16:31 Temperature 97.5 F L Pulse Rate 77 81 Respiratory Rate 16 18 Blood Pressure 171/74 H 142/71 H Pulse Oximetry 100 99 Oxygen Delivery Method Room Air Room Air <Alison Fung DO - Last Filed: 10/24/23 07:50> Orders Ordered: ED Orders 10/21/23 15:06 US periph venous low extrem lt Stat Vital Signs Vital signs: Vital Signs - 8 hr 10/21/23 14:40 10/21/23 16:31 Temperature 97.5 F L Pulse Rate 77 81 Respiratory Rate 16 18 Blood Pressure 171/74 H 142/71 H Pulse Oximetry 100 99 Oxygen Delivery Method Room Air Room Air MDM - Extremity (Nontraumatic) <LITZY Foster Last Filed: 10/22/23 19:39> Imaging Data US - DVT: My Impression: Agree with Radiology interpretation Radiologist's Impression: [address] [address] Ultrasound Report Signed Patient: Marylin Spivey MR#: [id number] : 1945 Acct:[id number] Age/Sex: 78 / F Date of Service: 10/21/23 Loc: ED Accession Number: [id number] Procedure: periph venous low extrem lt Ordering Provider: Vanessa Olsen P.A-C PROCEDURE: PERIP VENOUS LOW EXTREM LT INDICATIONS: r/o DVT TECHNIQUE: Real-time imaging, as well as color and pulse Doppler interrogation, were performed of the lower extremity deep veins from the inguinal ligament to the popliteal fossa, with documentation of the visualized calf veins. COMPARISON: None. FINDINGS: The common femoral, femoral, popliteal, and the visualized calf veins are normally compressible, and free of intraluminal thrombus. Color and pulse Doppler demonstrate normal phasic intraluminal flow. There is normal augmentation response to distal compression maneuver. IMPRESSION: No findings of lower extremity deep venous thrombosis. Dictated by: Akanksha Mitchell M.D. on 10/21/2023 at 15:59 Approved by: Akanksha Mitchell M.D. on 10/21/2023 at 16:00 [facility] Narrative Medical decision making narrative: This is a well-appearing 78-year-old female with chronic left hip pain and o steoarthritis who presents with concern for left lower leg swelling about the ankle sent by her PCP for ultrasound evaluation for DVT. Patient's ultrasound returns negative for DVT, based on her exam and history most suspicious that she has this unilateral lower extremity swelling 2nd to dangling her left leg over the edge of the bed where she sleeps as this helps her to reduce pain in her left hip. Counseled the patient regarding changing this position and working on keeping her leg elevated during sleep to minimize excessive swelling, her swelling is not severe and is nonpitting on exam today. Cardiac workup or further evaluation is not obtained. Patient already has scheduled to see Orthopedics for for their evaluation regarding her chronic left hip pain. She is encouraged to wear compression stockings during the day. Return precautions provided, follow-up plan discussed, all questions answered. Discharge Plan Departure Patient Disposition: Home Clinical Impression: Swelling of left lower extremity Activity Restrictions/Additional Instructions: *You have been diagnosed with [left lower extremity swelling] *What to do: *Please continue to take your regular medications as directed. [ ] New medication prescriptions sent to your pharmacy: [ ] [ ] New medication written as a paper prescription [X ] No new medications given *Please follow up with your primary care provider in 2-3 days, call for an appointment. Let them know you were seen in the Emergency Department and that we ask that you be seen in follow up. We will electronically transmit a record of today's note if your PCP is in our system. You came in today to get an ultras ound sent here by her primary care provider from [facility] as you had some calf swelling and some mild discomfort in that area since yesterday and they were concerned for a deep vein thrombosis. Your ultrasound returned negative for this. Your exam today also does not suggest this and I do not think there is any evidence of infection of your skin in this area either. After our discussion I think it is most likely that you are simply not getting good return of your limp and fluids from your lower leg because you have been draping it over the side of your bed/sectional that you sleep on in order to help with your hip pain. We discussed some options to try to make sure that your leg stays elevated at night instead of hanging down over the bed edge and I am hopeful this will help with the swelling that you have going on. I do not think ice will be particularly helpful as the swelling is not related to injury. I do think you should continue with compression stockings, although it would be best to give yourself a break from these and not wear these at night. You mentioned the ER providers were having trouble accessing images from [facility] from recent studies you had done here including MRI and so I did go ahead and print some of these image reports for you back through your lumbar spine MRI on June 10, 2023 and your more recent imaging. You can bring these to your providers office at your next visit or drop them by so that they can get them in the chart although as we discussed you may simply need to request from [facility] that they share the imaging electronically with your providers. I am not sure why they have not been able to access it. *If you do not have a primary care provider please contact the [facility] Resource line at [phone]. They will ask some questions about your medical history and help get you set up with a doctor in the community. *Return to Emergency Department if you should have any new, worsening or concerning symptoms, such as [fever greater than 101 F, shaking chills, worsening pain, persistent vomiting or other bothersome symptoms] Prescriptions: No Action clobetasol 0.05 % ointment 1 applictn TOP BID letrozole 2.5 mg tablet 2.5 mg PO DAILY Prolia 60 mg/mL syringe 60 mg SUBCUT [id number] desonide 0.05 % lotion 1 applic topical QD-BID PRN pimecrolimus [Elidel] 1 % cream 1 applic topical BID levothyroxine 88 mcg tablet 88 mcg PO DAILY loratadine 10 mg capsule 10 mg PO DAILY PRN Referrals: Citlali Pugh MD [Primary Care Provider] - Stand Alone Forms: Patient Portal/API ED Sign-out <Alison Fung DO - Last Filed: 10/24/23 07:50> Cosign ED Attending Costerrellature Attestation: I was available for consultation.
[2023-10-21 16:31] VITALS: BP 142/71; PULSE 81; RESP 18; O2SAT 99
== END 2023-10-21 16:45 | disposition home or self-care (01) ==
PROVIDERS: Emergency Provider Student in an Organized Health Care Education/Training Program; PCP Family Medicine
DX: R22.42 Localized swelling, mass and lump, left lower limb (principal)
CPT/HCPCS: 93971; 99283